=== PATIENT | female | born 2000 | race Caucasian/White ===

== ENCOUNTER 2019-06-16 10:30 | Emergency (ER) | payer BC ==
[2019-06-16] MEDS ORDERED: Famotidine IV* 10 MG/ML 2 ML (20 mg) ONE ×2 (10:47→10:48)
[2019-06-16] MEDS ORDERED: NS 0.9% 1000 ML** 1,000 ML IV ONE (10:47)
[2019-06-16] MEDS ORDERED: methylPREDNISolone 125 MG* 2 ML VIAL ONE (10:50)
[2019-06-16] MEDS ORDERED: diPHENhydraMINE IV* 50 MG/ML 1 ml VIAL (BENADRYL) ONE (10:50)
--- NOTE | 2019-06-16 11:07 | ED ---
Allergic Reaction/Systemic - HPI Summary HPI Summary: Pt is a 19 y/o F presenting to the ED with a chief complaint of an allergic reaction. She states she was getting ready for the morning when her face began to swell. She had only applied her sunscreen, no makeup. She is unaware of any allergies she has, so is unsure what could have caused this. She denies any new medications or new foods. She also denies shortness of breath, throat tightening , or tongue edema. - History of Current Complaint Chief Complaint: EDAllergicReaction Time Seen by Provider: 06/16/19 10:41 Hx Obtained From: Patient Onset/Duration: Sudden Onset, Started minutes ago, Still Present Timing: Intermittent, Lasting Minutes Severity Initially: Mild Severity Currently: None Pain Intensity: 0 Pain Scale Used: 0-10 Numeric Location: Discrete @ - face Character: Swelling Aggravating Factor(s): Nothing Alleviating Factor(s): Nothing Associated Signs And Symptoms: Positive: Negative - tongue edema, Other: - facial edema. Negative: Difficulty Breathing, Throat Tightening - Allergies/Home Medications Allergies/Adverse Reactions: Allergies Allergy/AdvReac Type Severity Reaction Status Date / Time No Known Allergies Allergy Verified 06/16/19 10:33 PMH/Surg Hx/FS Hx/Imm Hx Previously Healthy: Yes Endocrine/Hematology History: Denies: Hx Diabetes Cardiovascular History: Denies: Hx Hypertension - Surgical History Surgery Procedure, Year, and Place: adenoidectomy Infectious Disease History: No Infectious Disease History: Denies: Traveled Outside the [place] in Last 30 Days - Family History Known Family History: Negative: Diabetes - Social History Alcohol Use: None Hx Substance Use: No Substance Use Type: Reports: None Hx Tobacco Use: No Smoking Status (MU): Never Smoked Tobacco Review of Systems Negative: Other - throat tightening, tongue edema Negative: Shortness Of Breath Positive: Edema - facial edema All Other Systems Reviewed And Are Negative: Yes Physical Exam - Summary Physical Exam Summary: VITAL SIGNS: Reviewed. GENERAL: Patient is a well-developed and nourished female who is lying comfortable in the stretcher. Patient is not in any acute respiratory distress. HEAD AND FACE: Edema of most of the face and neck. Some edema of the back with lots of hives. No edema of the tongue or lips. No signs of trauma. No ecchymosis , hematomas or skull depressions. No sinus tenderness. EYES: PERRLA, EOMI x 2, No injected conjunctiva, no nystagmus. EARS: Hearing grossly intact. Ear canals and tympanic membranes are within normal limits. MOUTH: Oropharynx within normal limits. NECK: Supple, trachea is midline, no adenopathy, no JVD, no carotid bruit, no c- spine tenderness, neck with full ROM. CHEST: Symmetric, no tenderness at palpation. LUNGS: Clear to auscultation bilaterally. No wheezing or crackles. CVS: Regular rate and rhythm, S1 and S2 present, no murmurs or gallops appreciated. ABDOMEN: Soft, non-tender. No signs of distention. No rebound, no guarding, and no masses palpated. Bowel sounds are normal. EXTREMITIES: FROM in all major joints, no edema, no cyanosis or clubbing. NEURO: Alert and oriented x 3. No acute neurological deficits. Speech is normal and follows commands. SKIN: Dry and warm. Triage Information Reviewed: Yes Vital Signs On Initial Exam: Initial Vitals Temp Pulse Resp BP Pulse Ox 98.9 F 115 18 147/87 99 06/16/19 10:31 06/16/19 10:31 06/16/19 10:31 06/16/19 10:31 06/16/19 10:31 Vital Signs Reviewed: Yes Procedures - Sedation Patient Received Moderate/Deep Sedation with Procedure: No Diagnostics - Vital Signs Vital Signs Temp Pulse Resp BP Pulse Ox 06/16/19 10:31 98.9 F 115 18 147/87 99 - Laboratory Lab Statement: Any lab studies that have been ordered have been reviewed, and results considered in the medical decision making process. Re-Evaluation - Re-Evaluation 1st re-eval Re-Evaluation Time: 13:15 Change: Improved Comment: Pt feels much better and denies any symptoms. She has no edema, erythema, and all of her symptoms are gone. Allergic Reaction Course/Dx - Course Assessment/Plan: Patient is a 19-year-old female who presents to the emergency department with a chief complaint of having an allergic reaction. On physical exam the patient has swelling in the face, upper extremities, chest and back with hives. Denies any feeling that her throat is closing, no swelling of the tongue or lips. Initially in the emergency department she was given Solu-Medrol , Benadryl, and Pepcid. She was also given IV fluids. Patient was observed for a couple hours in the emergency department and her symptoms completely resolved. The patient is hemodynamically stable alert and oriented 3. Patient was given prescriptions for Benadryl, prednisone and an EpiPen. I discussed all the findings and test results with the patient. Patient was instructed to return to the emergency room immediately if any of the symptoms return or worsen. Plan of care was discussed with the patient and understands and agrees. All questions were answered at patient satisfaction. There were no further complaints or concerns. Lung exam before discharge: CTA B/L. Good air exchange. No wheezing or crackles heard. CVS: S1 and S2 present. No murmurs appreciated. Patient is alert and oriented x 3. Patient is hemodynamically stable. Patient will be discharged home with follow up escrow representative in the next 2-3 days - Diagnoses Provider Diagnoses: Allergic reaction Discharge ED - Sign-Out/Discharge Documenting (check all that apply): Patient Departure - Discharge Plan Condition: Stable Disposition: HOME Prescriptions: diPHENhydraMINE PO* [Benadryl PO 25 MG TAB*] 25 mg PO TID PRN #30 tab PRN Reason: Allergy Symptoms EPINEPHrine [Epipen 2-Dashawn] 0.3 mg IM ONCE #1 inj predniSONE [Prednisone 20 MG TAB] 40 mg PO DAILY #8 tablet Patient Education Materials: General Allergic Reaction (ED) Referrals: [facility] [Primary Care Provider] - [facility] [Provider Group] Additional Instructions: [facility] with [facility] in the next 1-3 days. Come back to the emergency department with any new or worsening symptoms. - Billing Disposition and Condition Condition: STABLE Disposition: Home - Attestation Statements Document Initiated by Frankieibe: Yes Documenting Scribe: Shandra Toro Provider For Whom Allison is Documenting (Include Credential): Glenn Elena MD. Scribe Attestation: Shandra Ta scribed for Glenn Elena MD. on 06/16/19 at 1851. Scribe Documentation Reviewed: Yes Provider Attestation: The documentation as recorded by the frankieibe, Shandra Toro accurately reflects the service I personally performed and the decisions made by , Glenn Elena MD. Status of Scribe Document: Viewed
[2019-06-16 13:30] VITALS: BP 118/69
== END 2019-06-16 13:20 | disposition home or self-care (01) ==
LOC: ED 10:30
DX: T78.40XA Allergy, unspecified, initial encounter (principal); X58.XXXA Exposure to other specified factors, initial encounter
CPT/HCPCS: 96360; 96361; 99283; J1200; J2930